=== PATIENT | male | born 1965 | race Caucasian/White ===

== ENCOUNTER 2021-06-12 10:00 | Emergency (ER) | payer BC ==
[~2021-06-12] VITALS: Ht 172.7 cm; Wt 64.8 kg
--- NOTE | 2021-06-12 11:20 | NUR ---
PATIENT EVAL BY PA IN TRIAGE. TESTS ORDERED. RETURNED TO LOBBY AWAITING ROOM.
--- NOTE | 2021-06-12 11:24 | NUR ---
URINE SAMPLE TAKEN. WILL SEND TO LAB.
[2021-06-12 12:08] LABS: CLARITY,URINE CLEAR (Clear); COLOR,URINE YELLOW (Yellow); GLUCOSE, URINE NEGATIVE (Neg); KETONES,URINE NEGATIVE (Neg); LEUKOCYTE ESTERASE ,URINE NEGATIVE (Neg); NITRITES, URINE NEGATIVE (Neg); OCCULT BLOOD,URINE NEGATIVE (Neg); PROTEIN,URINE NEGATIVE (Neg); UROBILINOGEN,URINE 0.2 E.U/dL (0.2-1.0)
[2021-06-12 12:09] LABS: UA COLLECTION TYPE CLN CATCH MIDSTREAM
[2021-06-12 12:41] LABS: ALANINE AMINOTRANSFERASE 22 U/L (12-78); ALBUMIN 3.9 G/DL (3.4-5.0); ALBUMIN/GLOBULIN RATIO 1.3 (1.1-1.5); ALKALINE PHOSPHATASE 59 IU/L (46-116); ANION GAP 7 (8-16); ASPARTATE AMINO TRANSFERASE 11 U/L (10-37); BILIRUBIN,TOTAL 0.5 MG/DL (0.1-1.0); BLOOD UREA NITROGEN 10 MG/DL (7-18); BUN/CREATININE RATIO 11.2 (5.4-32.0); CALCIUM 8.4 MG/DL (8.5-10.1); CHLORIDE 107 MMOL/L (99-107); CREATININE 0.89 MG/DL (0.60-1.10); GLUCOSE 82 MG/DL (70-104); POTASSIUM 4.5 MMOL/L (3.5-5.1); SODIUM 143 MMOL/L (135-145); TOTAL CARBON DIOXIDE 29.3 MMOL/L (24-32); eGFR 89 ML/MIN
[2021-06-12 12:42] LABS: BASOPHILS # (AUTO) 0.1 X10'3 (0-0.2); BASOPHILS % (AUTO) 1.1 % (0-1); EOSINOPHILS # (AUTO) 0.1 X10'3 (0-0.9); EOSINOPHILS % (AUTO) 1.7 % (0-6); HEMATOCRIT 44.6 % (42.0-52.0); HEMOGLOBIN 14.9 g/dl (14.0-17.9); LYMPHOCYTES # (AUTO) 1.5 X10'3 (1.1-4.8); LYMPHOCYTES % (AUTO) 25.6 % (21-51); MEAN CORPUSCULAR HEMOGLOBIN 30.7 PG (27.0-31.0); MEAN CORPUSCULAR HGB CONC 33.4 g/dL (33.0-36.5); MEAN CORPUSCULAR VOLUME 92.1 FL (78-98); MEAN PLATELET VOLUME 7.4 FL (7.4-10.4); MONOCYTES # (AUTO) 0.6 X10'3 (0-0.9); NEUTROPHILS # (AUTO) 3.5 X10'3 (1.8-7.7); NEUTROPHILS % (AUTO) 61.6 % (42-75); PLATELET COUNT 296 X10'3 (140-440); RED BLOOD COUNT 4.84 X10'6 (4.70-6.10); RED CELL DISTRIBUTION WIDTH 13.6 % (11.5-14.5); WHITE BLOOD COUNT 5.7 X10'3 (4.5-11.0)
[2021-06-12] MEDS ORDERED: ONDA4TAB6 PO (13:29)
[2021-06-12] MEDS ORDERED: FLO0.4C PO (13:29)
[2021-06-12] MEDS ORDERED: HYDR-3965 PO (13:29)
[2021-06-12] MEDS ORDERED: NAPR-56 PO (13:29)
[2021-06-12] MEDS ORDERED: ketorolac trometh inj. 60 MG/2 ML VIAL IM ONE (13:30)
[2021-06-12 13:48] VITALS: BP 151/78
== END 2021-06-12 13:50 | disposition home or self-care (01) ==
LOC: ER 10:01
DX: N23 Unspecified renal colic (principal); Z87.442 Personal history of urinary calculi
CPT/HCPCS: 36415; 76770; 80053; 81003; 85025; 96372; 99284; J1885